=== PATIENT | female | born 1980 | race Caucasian/White ===

== ENCOUNTER 2018-08-17 19:24 | Emergency (ER) | payer BC ==
[~2018-08-17] VITALS: Ht 165.1 cm; Wt 75.9 kg
[2018-08-17 19:29] VITALS: BP 140/93; TEMP 100.3
[2018-08-17 20:07] VITALS: PULSE 79
== END 2018-08-17 20:08 | disposition home or self-care (01) ==
LOC: COL.ER 19:24
DX: S00.83XA Contusion of other part of head, initial encounter (principal); Z23 Encounter for immunization; F17.210 Nicotine dependence, cigarettes, uncomplicated; W21.07XA Struck by softball, initial encounter; Y92.328 Other athletic field as the place of occurrence of the external cause

== ENCOUNTER → 2019-04-03 | Outpatient (CLI) | payer BC ==
[2004-11-24 04:59] VITALS: PULSE 82; TEMP 98.6
== END ==
LOC: MC.RAD 07:00
DX: Z12.31 Encounter for screening mammogram for malignant neoplasm of breast (principal)

== ENCOUNTER → 2021-06-09 | Outpatient (CLI) | payer BC ==
[2004-11-24 04:59] VITALS: PULSE 82; TEMP 98.6
== END ==
LOC: MC.RAD 13:47
DX: Z12.31 Encounter for screening mammogram for malignant neoplasm of breast (principal)